=== PATIENT | male | born 1990 | race African-American/Black ===

== ENCOUNTER 2016-08-20 07:41 | Emergency (ER) | payer MEDICAID, OTHER ==
[~2016-08-20] VITALS: Ht 185.4 cm; Wt 127.0 kg
[2016-08-20] MEDS ORDERED: DIPHENHYDRAMINE 50MG/ML VIAL IV ONE (08:30)
[2016-08-20 10:35] VITALS: BP 135/70
== END 2016-08-20 10:40 | disposition home or self-care (01) ==
LOC: ER 08:03
DX: G24.9 Dystonia, unspecified (principal); F17.210 Nicotine dependence, cigarettes, uncomplicated; F20.9 Schizophrenia, unspecified; F32.9 Major depressive disorder, single episode, unspecified
CPT/HCPCS: 96374; 99284; J1200; Z7610

== ENCOUNTER 2016-08-21 12:22 | Emergency (ER) | payer MEDICAID ==
[~2016-08-21] VITALS: Ht 177.8 cm; Wt 91.0 kg
[2016-08-21 12:25] VITALS: BP 154/74
[2016-08-21] MEDS ORDERED: METHYLPREDNISOLONE SOD SUCC 125 MG/2 ML VIAL IM ONE (16:45)
[2016-08-21] MEDS ORDERED: DIPHENHYDRAMINE 50MG/ML VIAL IM ONE (16:45)
== END 2016-08-21 17:37 | disposition home or self-care (01) ==
LOC: ER 13:34
DX: G24.9 Dystonia, unspecified (principal); K13.79 Other lesions of oral mucosa; F32.9 Major depressive disorder, single episode, unspecified; F20.9 Schizophrenia, unspecified
CPT/HCPCS: 96372; 99284; J1200; J2930; Z7610

== ENCOUNTER 2019-03-24 20:33 | Emergency (ER) | payer MEDICAID ==
[~2019-03-24] VITALS: Ht 177.8 cm; Wt 150.0 kg
[2019-03-24] MEDS ORDERED: KETOROLAC 30MG/ML VIAL IM ONE (21:45)
[2019-03-25] MEDS ORDERED: KETOROLAC 60MG/2ML VIAL IM ONE (00:30)
[2019-03-25] MEDS ORDERED: ACETAMINOPHEN 325MG TABLET PO ONE (08:30)
[2019-03-25 08:39] VITALS: BP 154/81
== END 2019-03-25 10:34 | disposition home or self-care (01) ==
LOC: ER 20:33
DX: M54.5 Low back pain (principal); F20.9 Schizophrenia, unspecified
CPT/HCPCS: 72100; 82962; 96372; 99283; J1885